=== PATIENT | female | born 1980 | race African-American/Black ===

== ENCOUNTER 2017-07-24 17:20 | Observation (INO) ==
[2017-07-24 18:13] LABS: Basophils % 0.1 % (0.0-0.8); Eosinophils % 0.2 % (0.00-10.9); Immature Granulocytes % 0.7 %; Lymphocytes # 2.6 10*3/uL (1.4-4.0); Lymphocytes % 19.5 % (21.3-54.2); Mean Corpuscular HGB Conc 23.8 GM/DL (32-36); Mean Corpuscular Hemoglobin 14 PG (27-34); Mean Corpuscular Volume 59.1 FL (87-102); Monocytes # 1.3 10*3/uL (0.11-0.8); Monocytes % 9.5 % (1.7-12.7); NRBC # 0.06 10*3/uL; Neutrophils # 9.4 10*3/uL (1.4-7.4); Platelet Count 374 T/CUMM (130-400); Red Cell Distribution Width 24.9 % (9.3-17.3); White Blood Count 13.4 T/CUMM (4-12)
[2017-07-24 18:14] LABS: Hemoglobin 3.1 GM/DL (12.0-16.0)
[2017-07-24] MEDS ORDERED: diphenhydrAMINE CAP 50 MG CAPSULE PO ONE (18:15)
[2017-07-24] MEDS ORDERED: ACETAMINOPHEN 500 MG TABLET PO ONE (18:15)
[2017-07-24 18:26] LABS: Alanine Aminotransferase < 6 U/L (13-56); Albumin 2.2 G/DL (3.4-5.0); Alkaline Phosphatase 63 U/L (45-117); Aspartate Amino Transferase 8 U/L (0-37); Blood Urea Nitrogen 5 MG/DL (7-18); Calcium 8.3 MG/DL (8.5-10.1); Glucose 85 MG/DL (74-106); Osmolality,Calculated 272.5 MOS/KG (273-304); Potassium 3.9 MMOL/L (3.5-5.1); Sodium 139 MMOL/L (136-145); Total Protein 8.3 G/DL (6.4-8.3)
[2017-07-24] MEDS: SODIUM CHLORIDE 0.9% 1,000 ML IV PRN (18:31)
[2017-07-24 18:35] LABS: Barbiturates Screen,Urine Negative (Negative); Benzodiazepines Screen,Urine Negative (Negative); Cannabinoid Screen,Urine Negative (Negative); Opiate Screen,Urine Negative (Negative); Phencyclidine Screen,Urine Negative (Negative)
[2017-07-24 18:38] LABS: Apearance,Urine Slightly Hazy (Clear); Bilirubin,Urine Negative (Negative); Blood, Urine Negative (Negative); Glucose,Urine (UA) Negative (Negative); Ketones,Urine Negative (Negative); Mucus,Urine Occasional /LPF (Occasional); Nitrite,Urine Negative (Negative); Protein,Urine 100 MG/DL; RBC,Urine 3 /HPF (0-4); Squamous Epithelial Cell,Urine Occasional /HPF (0-10); Urine Color Amber (Yellow); Urine Specific Gravity 1.015 (1.001-1.035); WBC,Urine 5 /HPF (0-6)
[2017-07-24] MEDS ORDERED: IRON DEXTRAN 25 MG in SYRINGE 1 EACH IV ONE (19:35)
[2017-07-24] MEDS ORDERED: cefTRIAXone 1,000 MG VIAL IM ONE (19:53)
[2017-07-24] MEDS ORDERED: IRON DEXTRAN 1,000 MG in SODIUM CHLORIDE 0.9% 500 ML IV ONE (20:00)
[2017-07-24] MEDS ORDERED: NIFEdipine 10 MG CAPSULE PO ONE (23:00)
[2017-07-25] MEDS: NIFEdipine 10 MG CAPSULE PO SCH ×3 (04:08→13:06)
[2017-07-25] MEDS: SODIUM CHLORIDE 0.9% 1,000 ML IV PRN (05:10)
[2017-07-25] MEDS ORDERED: diphenhydrAMINE CAP 50 MG CAPSULE PO ONE (06:00)
[2017-07-25] MEDS ORDERED: ACETAMINOPHEN 500 MG TABLET PO ONE (06:00)
[2017-07-25 16:14] VITALS: BP 140/79
[2017-07-25 17:25] LABS: Basophils % 0.2 % (0.0-0.8); Eosinophils % 0.2 % (0.00-10.9); Hematocrit 19.6 VOL% (35.7-47.0); Immature Granulocytes Absolute 0.12 #; Lymphocytes # 2.2 10*3/uL (1.4-4.0); Lymphocytes % 17.6 % (21.3-54.2); Mean Corpuscular HGB Conc 28.1 GM/DL (32-36); Mean Corpuscular Hemoglobin 20 PG (27-34); Mean Corpuscular Volume 70.5 FL (87-102); Monocytes # 1.3 10*3/uL (0.11-0.8); NRBC # 0.15 10*3/uL; Neutrophils # 8.9 10*3/uL (1.4-7.4); Platelet Count 311 T/CUMM (130-400); Red Blood Count 2.78 MC/CUMM (3.8-5.5); Red Cell Distribution Width 30.5 % (9.3-17.3); White Blood Count 12.6 T/CUMM (4-12)
[2017-07-25 17:37] LABS: Hemoglobin 5.6 GM/DL (12.0-16.0)
[2017-07-25 19:00] LABS: Anisocytosis 3+; Hypochromasia 2+; Ovalocytes Few; Poikilocytosis 1+; Tear Drop Cells Few
== END 2017-07-25 18:50 | disposition home or self-care (01) ==
LOC: N.OB → N.LD 17:47
PROVIDERS: ADMIT Obstetrics & Gynecology; ATTEND Obstetrics & Gynecology

== ENCOUNTER 2017-09-28 06:36 | Inpatient (IN) ==
[2017-09-28] MEDS ORDERED: CITRIC ACID/SODIUM CITRATE 30 ML UDCUP PO ONE (07:00)
[2017-09-28] MEDS ORDERED: LACTATED RINGERS 1,000 ML IV ONE ×2 (07:08→10:30)
[2017-09-28] MEDS ORDERED: FAMOTIDINE 20 MG/2 ML VIAL IV ONE (07:08)
[2017-09-28 07:31] LABS: Basophils % 0.3 % (0.0-0.8); Eosinophils # 0.2 10*3/uL (0.0-0.87); Eosinophils % 1.7 % (0.00-10.9); Hematocrit 35.1 VOL% (35.7-47.0); Hemoglobin 11.6 GM/DL (12.0-16.0); Immature Granulocytes % 0.6 %; Immature Granulocytes Absolute 0.06 #; Lymphocytes # 2.1 10*3/uL (1.4-4.0); Lymphocytes % 21.2 % (21.3-54.2); Mean Corpuscular Hemoglobin 30 PG (27-34); Mean Corpuscular Volume 90.7 FL (87-102); Monocytes # 0.9 10*3/uL (0.11-0.8); Monocytes % 9.3 % (1.7-12.7); Neutrophils # 6.5 10*3/uL (1.4-7.4); Neutrophils % 66.9 % (38.7-73.9); Platelet Count 198 T/CUMM (130-400); Red Blood Count 3.87 MC/CUMM (3.8-5.5); Red Cell Distribution Width 17.6 % (9.3-17.3); White Blood Count 9.8 T/CUMM (4-12)
[2017-09-28 07:59] LABS: Giant Platelets Few; Hypochromasia 1+; Platelet Estimate Adequate
[2017-09-28 08:00] LABS: Burr Cells Slight; Microcytosis Slight; Ovalocytes Slight
[2017-09-28] MEDS ORDERED: ceFAZolin 2,000 MG in PREMIX 1 EACH IV ONE (08:00)
[2017-09-28] MEDS: LACTATED RINGERS 1,000 ML IV SCH ×2 (08:18→16:10)
[2017-09-28] MEDS ORDERED: OXYTOCIN/LR 20 UNIT/1,000 ML BAG IV ONE (09:00)
[2017-09-28] MEDS ORDERED: OXYTOCIN 10 UNIT/ML VIAL ONE ×2 (09:27→09:47)
[2017-09-28] MEDS ORDERED: SODIUM CHLORIDE 0.9% 1,000 ML IV PRN (10:17)
[2017-09-28 10:23] LABS: Apearance,Urine CLEAR (Clear); Bilirubin,Urine Negative (Negative); Blood, Urine Negative (Negative); Glucose,Urine (UA) Negative (Negative); Ketones,Urine Negative (Negative); Nitrite,Urine Negative (Negative); Protein,Urine Negative; RBC,Urine 34 /HPF (0-4); Squamous Epithelial Cell,Urine Occasional /HPF (0-10); Urine Color Yellow (Yellow); Urine Specific Gravity 1.004 (1.001-1.035); WBC,Urine <1 /HPF (0-6)
[2017-09-28] MEDS ORDERED: fentaNYL 100 MCG/2 ML VIAL ONE (10:30)
[2017-09-28] MEDS ORDERED: LIDOCAINE MPF 2% /EPI 20 ML VIAL ONE (10:30)
[2017-09-28] MEDS ORDERED: PHENYLEPHRINE 1 MG/10 ML SYRINGE IV ONE (10:30)
[2017-09-28] MEDS ORDERED: ONDANSETRON 4 MG/2 ML VIAL ONE (10:30)
[2017-09-28] MEDS ORDERED: PHENYLEPHRINE 10 MG/1 ML VIAL IV ONE (10:30)
[2017-09-28] MEDS ORDERED: MORPHINE 10 MG/10 ML VIAL ONE (10:30)
[2017-09-28] MEDS ORDERED: HYDROmorphone 2 MG/1 ML VIAL IV PRN (11:49)
[2017-09-28] MEDS ORDERED: RHO(D) IMMUNE GLOBULIN 300 MCG SYRINGE IM ONE (13:33)
[2017-09-28] MEDS ORDERED: ONDANSETRON 4 MG/2 ML VIAL IV PRN (13:33)
[2017-09-28] MEDS ORDERED: FUROSEMIDE 20 MG/2 ML VIAL IV ONE (13:43)
[2017-09-28] MEDS ORDERED: SODIUM CHLORIDE 0.9% 1,000 ML IV SCH (14:30)
[2017-09-28] MEDS ORDERED: SODIUM BICARBONATE 2.4 MEQ/5 ML VIAL ONE (16:20)
[2017-09-28] MEDS: ceFAZolin 1,000 MG in SYRINGE 1 EACH IV SCH (17:20)
[2017-09-28 18:15] LABS: Basophils % 0.2 % (0.0-0.8); Hemoglobin 10.1 GM/DL (12.0-16.0); Immature Granulocytes % 0.5 %; Immature Granulocytes Absolute 0.11 #; Lymphocytes # 1.8 10*3/uL (1.4-4.0); Lymphocytes % 8.8 % (21.3-54.2); Mean Corpuscular HGB Conc 33.7 GM/DL (32-36); Mean Corpuscular Hemoglobin 29 PG (27-34); Mean Corpuscular Volume 87.2 FL (87-102); Monocytes # 1.3 10*3/uL (0.11-0.8); Monocytes % 6.6 % (1.7-12.7); Neutrophils # 16.9 10*3/uL (1.4-7.4); Neutrophils % 83.9 % (38.7-73.9); Platelet Count 165 T/CUMM (130-400); Red Blood Count 3.44 MC/CUMM (3.8-5.5); Red Cell Distribution Width 17.2 % (9.3-17.3); White Blood Count 20.1 T/CUMM (4-12)
[2017-09-28 19:16] LABS: Eosinophils 1 % (0-10); Hypochromasia 1+; Lymphocytes 11 % (20-55); Metamyelocytes 2 %; Platelet Estimate Adequate; Segmented Neutrophils 85 % (50-85); Total Cells Counted 100
[2017-09-28 19:17] LABS: Polychromasia Few
[2017-09-28] MEDS: SIMETHICONE CHEW 80 MG TABLET PO PRN (22:39)
[2017-09-28] MEDS: DOCUSATE SODIUM 100 MG CAPSULE PO SCH (23:22)
[2017-09-29] MEDS: ceFAZolin 1,000 MG in SYRINGE 1 EACH IV SCH (02:03)
[2017-09-29] MEDS: IBUPROFEN 800 MG TABLET PO SCH ×2 (05:45→16:46)
[2017-09-29 07:02] LABS: Basophils # 0.1 10*3/uL (0.0-0.2); Basophils % 0.3 % (0.0-0.8); Eosinophils % 0.2 % (0.00-10.9); Hematocrit 25.5 VOL% (35.7-47.0); Hemoglobin 8.5 GM/DL (12.0-16.0); Immature Granulocytes % 0.8 %; Immature Granulocytes Absolute 0.15 #; Lymphocytes # 1.6 10*3/uL (1.4-4.0); Lymphocytes % 8.4 % (21.3-54.2); Mean Corpuscular HGB Conc 33.3 GM/DL (32-36); Mean Corpuscular Hemoglobin 30 PG (27-34); Mean Corpuscular Volume 89.2 FL (87-102); Monocytes # 1.3 10*3/uL (0.11-0.8); Monocytes % 6.6 % (1.7-12.7); Neutrophils # 16.1 10*3/uL (1.4-7.4); Neutrophils % 83.7 % (38.7-73.9); Platelet Count 154 T/CUMM (130-400); Red Blood Count 2.86 MC/CUMM (3.8-5.5); Red Cell Distribution Width 17.2 % (9.3-17.3); White Blood Count 19.3 T/CUMM (4-12)
[2017-09-29 07:18] LABS: Hypochromasia 1+; Ovalocytes Slight
[2017-09-29 07:19] LABS: Giant Platelets Few; Microcytosis Slight; Platelet Estimate Adequate
[2017-09-29] MEDS ORDERED: SODIUM CHLORIDE 0.9% 1,000 ML IV PRN (07:31)
[2017-09-29] MEDS: MULTIVITAMIN (PRENATAL) TABLET PO SCH (08:27)
[2017-09-29] MEDS: DOCUSATE SODIUM 100 MG CAPSULE PO SCH ×2 (08:27→20:28)
[2017-09-29] MEDS: SIMETHICONE CHEW 80 MG TABLET PO PRN ×2 (08:27→20:28)
[2017-09-29] MEDS: MAGNESIUM HYDROXIDE SUSP 30 ML UDCUP PO PRN ×2 (08:27→20:28)
[2017-09-29] MEDS: LACTATED RINGERS 1,000 ML IV SCH (11:25)
[2017-09-29] MEDS ORDERED: FUROSEMIDE 20 MG/2 ML VIAL IV ONE (16:34)
[2017-09-29 16:42] LABS: Basophils % 0.1 % (0.0-0.8); Eosinophils # 0.1 10*3/uL (0.0-0.87); Eosinophils % 0.2 % (0.00-10.9); Hematocrit 31.1 VOL% (35.7-47.0); Hemoglobin 10.5 GM/DL (12.0-16.0); Immature Granulocytes % 0.8 %; Immature Granulocytes Absolute 0.16 #; Lymphocytes # 1.1 10*3/uL (1.4-4.0); Lymphocytes % 5.6 % (21.3-54.2); Mean Corpuscular HGB Conc 33.8 GM/DL (32-36); Mean Corpuscular Hemoglobin 30 PG (27-34); Mean Corpuscular Volume 88.9 FL (87-102); Monocytes # 1.1 10*3/uL (0.11-0.8); Monocytes % 5.4 % (1.7-12.7); Neutrophils # 17.6 10*3/uL (1.4-7.4); Neutrophils % 87.9 % (38.7-73.9); Platelet Count 175 T/CUMM (130-400); Red Cell Distribution Width 16.5 % (9.3-17.3); White Blood Count 20.1 T/CUMM (4-12)
[2017-09-29 19:11] LABS: Band Neutrophils 1 % (0-10); Hypochromasia 1+; Lymphocytes 4 % (20-55); Platelet Estimate Adequate; Segmented Neutrophils 95 % (50-85); Total Cells Counted 100
[2017-09-30] MEDS: IBUPROFEN 800 MG TABLET PO SCH ×3 (03:34→17:30)
[2017-09-30] MEDS: MULTIVITAMIN (PRENATAL) TABLET PO SCH (07:53)
[2017-09-30] MEDS: DOCUSATE SODIUM 100 MG CAPSULE PO SCH ×2 (07:54→21:23)
[2017-10-01] MEDS: IBUPROFEN 800 MG TABLET PO SCH (01:52)
[2017-10-01] MEDS: MULTIVITAMIN (PRENATAL) TABLET PO SCH (08:41)
[2017-10-01 11:05] VITALS: BP 120/71
[2017-10-01] MEDS ORDERED: MEASLES/MUMPS/RUBELLA VACCINE 0.5 ML VIAL SUBCUT ONE (12:16)
== END 2017-10-01 13:30 | disposition home or self-care (01) | DRG 540 ==
LOC: N.LD 06:36 → N.OB 13:20
PROVIDERS: ADMIT Obstetrics & Gynecology; ATTEND Obstetrics & Gynecology
PROC: LDCSECT (ICD-10-PCS; 2017-09-28 13:15)